=== PATIENT | female | born 1985 | race Caucasian/White ===

== ENCOUNTER 2016-12-02 17:00 | Inpatient (IN) | payer OTHER ==
[~2016-12-02] VITALS: Ht 162.6 cm; Wt 83.9 kg
[2016-12-02] MEDS ORDERED: OXYTOCIN 30 UNIT/500 ML PREMIX 500 ML IV PRN (18:00)
[2016-12-02] MEDS ORDERED: IBUPROFEN 600 MG TABLET. PO PRN (18:00)
[2016-12-02] MEDS ORDERED: CITRIC ACID/SODIUM CITRATE 30 ML SOLUTION. PO PRN (18:00)
[2016-12-02] MEDS ORDERED: TERBUTALINE 1 MG/ML VIAL. SQ PRN (18:00)
[2016-12-02] MEDS ORDERED: LIDOCAINE 1% PF 30 ML VIAL. INJ PRN (18:00)
[2016-12-02] MEDS ORDERED: 0.9 % SODIUM CHLORIDE 10 ML DISP.SYRIN. IV PRN (18:00)
[2016-12-02] MEDS ORDERED: FENTANYL PF 100 MCG/2 ML VIAL. IV PRN (18:00)
[2016-12-02] MEDS ORDERED: PNV1TABL25 PO (18:06)
[2016-12-02 18:20] LABS: BASO % 0 % (0-3); EOS % 1 % (0-3); HEMOGLOBIN 10.1 g/dL (12.0-15.5); LYMPH # 1.8 x10^3/uL (1.0-4.8); LYMPH % 13 % (24-48); MEAN CORPUSCULAR HEMOGLOBIN 24 pg (25-35); MEAN CORPUSCULAR HGB CONC 32 g/dL (31-37); MEAN CORPUSCULAR VOLUME 77 fL (79-100); MONO % 9 % (0-9); NEUT % 78 % (31-73); PLATELET COUNT 249 x10^3/uL (140-400); RED BLOOD COUNT 4.16 x10^6/uL (3.50-5.40); RED CELL DISTRIBUTION WIDTH 16.5 % (11.5-14.5); WHITE BLOOD COUNT 13.9 x10^3/uL (4.0-11.0)
[2016-12-02] MEDS: IV RINGERS,LACTATED 1000ML 1,000 ML IV PRN ×2 (18:29→19:17)
[2016-12-02] MEDS ORDERED: EPHEDRINE PF IN SALINE 50 MG/5 ML DISP.SYRIN. IV PRN (18:30)
[2016-12-02] MEDS ORDERED: ROPIVacaine 0.2% PF 10 ML VIAL. EPI ONE (18:30)
[2016-12-02] MEDS ORDERED: FENTANYL PF 100 MCG/2 ML VIAL. EPI ONE (18:30)
[2016-12-02] MEDS ORDERED: NALOXONE 0.4 MG/ML VIAL. IV PRN (18:30)
[2016-12-02] MEDS ORDERED: ONDANSETRON PF 4 MG/2 ML VIAL. IV PRN (18:30)
[2016-12-02] MEDS ORDERED: ROPIVacaine 0.2% IN 0.9%NACL PF 40 MG/20 ML DISP.SYRIN. ONE (18:33)
[2016-12-02] MEDS: L&D EPIDURAL CASSETTE 100 ML EP PRN (19:00)
--- NOTE | 2016-12-03 01:21 | PDOC1 ---
OB - History Hx of Present Care: Good Care Ultrasounds: Normal mid trimester US Obstetrical Complications: None Medical Complications: None Past Family/Social History * Past Medical, Surgical, Family and Obstetric Histories reviewed from chart. Rubella: Immune RPR/VDRL: Negative GBS Status: Negative HBsAG: Negative OB - Chief Complaint & HPI Date of Admission: Date of Admission: Dec 02, 2016 at 17:00 Chief Complaint/History : 2 Para: 1 EGA: 38 Reason for admission: active labor Admission Nurse Assessment Rev: Yes Problems: OB - Admission Exam Physical Exam Vitals: VS - Last 72 Hours, by Label Date Time Temp Pulse Resp B/P Pulse Ox O2 Delivery O2 Flow Rate FiO2 12/02/16 19:00 18 Room Air 12/02/16 18:14 24 Room Air HEENT: Normal Heart: Regular Rate Lungs: Clear Abdomen: Gravid, Non tender, Soft Extremities: Edema Reflexes: Normal Cervical Dilatation: 5cm Effacement: 75% Station: -3 Membranes: Intact Heart Rate: Normal Accelerations: Accelerations Present Decelerations: No decelerations Contractions on Admission: < 5 Minutes Apart Intensity: Firm Text A: 38 wks IUP Active labor P: Admit for labor management. MARIAN HAWK Jr, MD Dec 03, 2016 01:21
[2016-12-03] MEDS: L&D EPIDURAL CASSETTE 100 ML EP PRN (01:59)
[2016-12-03] MEDS: IV RINGERS,LACTATED 1000ML 1,000 ML IV PRN (04:31)
[2016-12-03] MEDS ORDERED: CEFAZOLIN PREMIX 2 GM/50 ML BAG. IV ONE (07:00)
[2016-12-03] MEDS ORDERED: CEFAZOLIN 2GM PREMIX 50 ML IV SCH (07:15)
[2016-12-03] MEDS ORDERED: LIDOCAINE 2% PF Vial for OR 5 ML VIAL. ONE ×2 (07:27→08:16)
[2016-12-03] MEDS ORDERED: PHENYLEPHRINE in 0.9% NACL PF 1 MG/10 ML DISP.SYRIN. IV ONE ×2 (07:46→08:32)
[2016-12-03] MEDS ORDERED: OXYTOCIN 10 UNIT/ML VIAL. ONE (07:56)
--- NOTE | 2016-12-03 08:40 | PDOC4 ---
OB Operative Note PRE OP DIAGNOSIS: Other (FTP) POST OP DIAGNOSIS: Other (Same) OPERATION PERFORMED: [facility] Surgeon Dr. Stevenson Production Supervisor Radha Anesthesia: Regional (Epidural) Blood Loss 800 ml Specimen placenta and OB Findings: Position (Vertex), Sex (Male), (6/9), Weight (3225 Gram), Other (true knot x 1) Complications none Additional Remarks pt. MARIAN Huber Jr, MD Dec 03, 2016 08:40
[2016-12-03] MEDS ORDERED: ZOLPIDEM 5 MG TABLET. PO PRN (08:45)
[2016-12-03] MEDS ORDERED: MAG HYDROX/ALUMINUM HYD/SIMETH 30 ML ORAL.SUSP PO PRN (08:45)
[2016-12-03] MEDS ORDERED: DIPHENHYDRAMINE ORAL ELIXIR 12.5 MG/5 ML. PO PRN (08:45)
[2016-12-03] MEDS ORDERED: OXYTOCIN 30 UNIT/500 ML PREMIX 500 ML IV PRN (08:45)
[2016-12-03] MEDS ORDERED: HYDROMORPHONE STANDARD PCA 30 ML IV PRN (08:45)
[2016-12-03] MEDS ORDERED: ONDANSETRON PF 4 MG/2 ML VIAL. IV PRN (08:45)
[2016-12-03] MEDS ORDERED: 0.9 % SODIUM CHLORIDE 10 ML DISP.SYRIN. IV PRN (08:45)
[2016-12-03] MEDS: KETOROLAC TROMETHAMINE 30 MG/ML SYRINGE. IV PRN ×2 (09:29→18:30)
[2016-12-03 10:40] LABS: HEMATOCRIT 25.2 % (36.0-47.0); RED BLOOD COUNT 3.27 x10^6/uL (3.50-5.40); RED CELL DISTRIBUTION WIDTH 16.3 % (11.5-14.5); WHITE BLOOD COUNT 17.9 x10^3/uL (4.0-11.0)
--- NOTE | 2016-12-03 11:07 | OP ---
DATE OF SURGERY: PREOPERATIVE DIAGNOSES: 1. A 38 weeks intrauterine . 2. Failure to progress. POSTOPERATIVE DIAGNOSES: 1. A 38 weeks intrauterine . 2. Failure to progress. PROCEDURE: Primary low transverse section. SURGEON: Dr. Alberto Stevenson. MEDICAL RESEARCH ASSOCIATE: Radha. ANESTHESIA: Epidural. ESTIMATED BLOOD LOSS: 800 mL. COMPLICATIONS: None. FINDINGS: Viable male , Apgars 6 and 9, weight 3225 grams. Three-vessel cord placenta delivered manually intact. SUMMARY: Term gestation, 2, para 1, at 38 weeks gestation, presented in active labor. The patient progressed up to 9.5 cm dilation; however, she felt to progress over several hours of laboring. The patient was then counseled on need for section due to failure to progress. She was counseled on risks, benefits and expectations and voiced a clear understanding to proceed. DESCRIPTION OF PROCEDURE: The patient was taken to surgery suite and placed in dorsal supine position where she was prepped with ChloraPrep and draped in sterile fashion. After adequate anesthesia, a Pfannenstiel skin incision was made with scalpel down to and through the fascia. Fascia was extended laterally using curved Mensah scissors. The superior edge of the fascia was grasped with two Wander clamps and dissected free of the abdominal rectus muscle using blunt dissection along with Bovie cautery. The same process took place inferiorly. The peritoneum was grasped with 2 hemostats and entered sharply with Metzenbaum scissors. This incision was extended superiorly as well as inferiorly. The Dejon ring retractor was placed. Low transverse hysterotomy incision made with scalpel down to the infant. The hysterotomy incision was extended laterally and superiorly digitally. ____ scissors were used to extend the right similarly extend the left apex of the hysterotomy incision and superiorly. With fundal pressure, the 's head was delivered in a smooth atraumatic manner. With additional fundal pressure, the anterior shoulder was delivered followed by posterior shoulder and rest of the male was delivered. was suctioned with bulb syringe orally and nasally, umbilical cord was clamped twice and cut. A viable male infant was handed to waiting nursing staff. A true knot x 1 was visualized. The uterus was exteriorized and the placenta was delivered manually intact. The uterus was then cleared of clot and debris with a moist lap. The extension was repaired in a double layer using 1-0 Vicryl suture in running locked fashion. The hysterotomy incision itself was reapproximated using 1-0 Vicryl suture in a running locked fashion and imbricated layer of 1-0 Vicryl suture was utilized for better hemostasis. Noahjf-bu-xxzec sutures were placed in the left apex of the hysterotomy incision as well as FloSeal for better hemostasis. Interceed was placed over the hysterotomy incision in an inverted T fashion. The uterus palpated firm, fallopian tubes and ovaries were normal. Posterior cul-de-sac was cleared of clot and debris with a moist lap. The pericolic gutters were cleared of clot and debris with a moist lap. Hysterotomy incision was reviewed and was hemostatic. The Dejon ring retractor was removed. The peritoneum was reapproximated using 1-0 Vicryl suture in running fashion. The abdominal rectus muscle reapproximated using 1-0 Vicryl suture in a running fashion. The fascia was reapproximated using 0 Vicryl suture in running fashion. Skin was reapproximated using 4-0 Vicryl suture in subcuticular manner. The patient tolerated the procedure well and was taken to recovery room in stable condition. Sponge and needle count correct x 3. MARIAN STEVENSON MD DR: TIRSO/mara JOB#: [id number] / [id number]
[2016-12-03 12:00] VITALS: BP 100/52
[2016-12-03 18:00] VITALS: BP 105/70
[2016-12-03] MEDS: FLUCONAZOLE 100 MG TABLET. PO SCH (20:15)
[2016-12-03 23:30] VITALS: BP 88/46
[2016-12-04] MEDS: KETOROLAC TROMETHAMINE 30 MG/ML SYRINGE. IV PRN (03:04)
[2016-12-04 04:11] LABS: BASO % 0 % (0-3); EOS % 0 % (0-3); HEMATOCRIT 23.3 % (36.0-47.0); HEMOGLOBIN 7.2 g/dL (12.0-15.5); LYMPH # 1.2 x10^3/uL (1.0-4.8); LYMPH % 7 % (24-48); MEAN CORPUSCULAR HEMOGLOBIN 24 pg (25-35); MEAN CORPUSCULAR HGB CONC 31 g/dL (31-37); MEAN CORPUSCULAR VOLUME 78 fL (79-100); MONO % 6 % (0-9); NEUT % 87 % (31-73); PLATELET COUNT 171 x10^3/uL (140-400); RED BLOOD COUNT 2.97 x10^6/uL (3.50-5.40); RED CELL DISTRIBUTION WIDTH 16.2 % (11.5-14.5); WHITE BLOOD COUNT 17.2 x10^3/uL (4.0-11.0)
[2016-12-04 05:16] LABS: PLT ESTIMATE ADEQUATE (ADEQUATE)
[2016-12-04] MEDS: OXYCODONE/APAP 5/325 TABLET. PO PRN ×2 (05:35→15:10)
[2016-12-04 06:15] VITALS: BP 94/48
--- NOTE | 2016-12-04 08:03 | PDOC ---
OB Progress Note Date of Service 12/04/16 Time of Evaluation 0800 Problem List Problems Medical Problems: (1) delivery delivered Status: Acute Notes Pt. feeling well. Pain controlled. Breast feeding. Lochia minimal. Lab Laboratory Tests Test 12/02/16 17:40 12/03/16 10:30 12/04/16 03:45 White Blood Count 13.9x10^3/uL (4.0-11.0) 17.9x10^3/uL (4.0-11.0) 17.2x10^3/uL (4.0-11.0) Red Blood Count 4.16x10^6/uL (3.50-5.40) 3.27x10^6/uL (3.50-5.40) 2.97x10^6/uL (3.50-5.40) Hemoglobin 10.1g/dL (12.0-15.5) 8.0g/dL (12.0-15.5) 7.2g/dL (12.0-15.5) Hematocrit 32.0% (36.0-47.0) 25.2% (36.0-47.0) 23.3% (36.0-47.0) Mean Corpuscular Volume 77fL (79-100) 77fL (79-100) 78fL (79-100) Mean Corpuscular Hemoglobin 24pg (25-35) 24pg (25-35) 24pg (25-35) Mean Corpuscular Hemoglobin Concent 32g/dL (31-37) 32g/dL (31-37) 31g/dL (31-37) Red Cell Distribution Width 16.5% (11.5-14.5) 16.3% (11.5-14.5) 16.2% (11.5-14.5) Platelet Count 249x10^3/uL (140-400) 186x10^3/uL (140-400) 171x10^3/uL (140-400) Neutrophils (%) (Auto) 78% (31-73) 87% (31-73) Lymphocytes (%) (Auto) 13% (24-48) 7% (24-48) Monocytes (%) (Auto) 9% (0-9) 6% (0-9) Eosinophils (%) (Auto) 1% (0-3) 0% (0-3) Basophils (%) (Auto) 0% (0-3) 0% (0-3) Neutrophils # (Auto) 10.8x10^3uL (1.8-7.7) 14.9x10^3uL (1.8-7.7) Lymphocytes # (Auto) 1.8x10^3/uL (1.0-4.8) 1.2x10^3/uL (1.0-4.8) Monocytes # (Auto) 1.2x10^3/uL (0.0-1.1) 1.0x10^3/uL (0.0-1.1) Eosinophils # (Auto) 0.1x10^3/uL (0.0-0.7) 0.1x10^3/uL (0.0-0.7) Basophils # (Auto) 0.0x10^3/uL (0.0-0.2) 0.0x10^3/uL (0.0-0.2) RPR Titer Additional Testing Non reactive (Non Reactive) Segmented Neutrophils % 80% (35-66) Band Neutrophils % 9% (0-9) Lymphocytes % 9% (24-48) Monocytes % 2% (0-10) Platelet Estimate Adequate (ADEQUATE) Laboratory Tests Test 12/03/16 10:30 12/04/16 03:45 White Blood Count 17.9x10^3/uL (4.0-11.0) 17.2x10^3/uL (4.0-11.0) Red Blood Count 3.27x10^6/uL (3.50-5.40) 2.97x10^6/uL (3.50-5.40) Hemoglobin 8.0g/dL (12.0-15.5) 7.2g/dL (12.0-15.5) Hematocrit 25.2% (36.0-47.0) 23.3% (36.0-47.0) Mean Corpuscular Volume 77fL (79-100) 78fL (79-100) Mean Corpuscular Hemoglobin 24pg (25-35) 24pg (25-35) Mean Corpuscular Hemoglobin Concent 32g/dL (31-37) 31g/dL (31-37) Red Cell Distribution Width 16.3% (11.5-14.5) 16.2% (11.5-14.5) Platelet Count 186x10^3/uL (140-400) 171x10^3/uL (140-400) Neutrophils (%) (Auto) 87% (31-73) Lymphocytes (%) (Auto) 7% (24-48) Monocytes (%) (Auto) 6% (0-9) Eosinophils (%) (Auto) 0% (0-3) Basophils (%) (Auto) 0% (0-3) Neutrophils # (Auto) 14.9x10^3uL (1.8-7.7) Lymphocytes # (Auto) 1.2x10^3/uL (1.0-4.8) Monocytes # (Auto) 1.0x10^3/uL (0.0-1.1) Eosinophils # (Auto) 0.1x10^3/uL (0.0-0.7) Basophils # (Auto) 0.0x10^3/uL (0.0-0.2) Segmented Neutrophils % 80% (35-66) Band Neutrophils % 9% (0-9) Lymphocytes % 9% (24-48) Monocytes % 2% (0-10) Platelet Estimate Adequate (ADEQUATE) Medications Current Medications Sodium Chloride 3 ml 3 ml QSHIFT PRN IV AFTER MEDS AND BLOOD DRAWS; Start 12/02 at 18:00 Lactated Ringer's (Iv Lactated Ringers) 1,000 ml @ 125 mls/hr Q8H PRN IV PER PROTOCOL Last administered on 12/03/16 04:31; Start 12/02/16 at 18:00 Fentanyl Citrate (Fentanyl 2ml Vial) 100 mcg PRN Q20MIN PRN IV Labor pain Last administered on 12/02/16 18:14; Start 12/02/16 at 18:00 Citric Acid/ Sodium Citrate (Bicitra) 30 ml 1X PRN PRN PO DYSPEPSIA; Start at 18:00; Stop 12/03/16 at 17:59; Status DC Terbutaline Sulfate (Brethine) 0.25 mg 1X PRN PRN SQ SEE COMMENTS; Start at 18:00; Stop 12/03/16 at 17:59; Status DC Lidocaine HCl 30 ml 30 ml 1X PRN PRN INJ SEE COMMENTS; Start 12/02/16 at 18:00 ; Stop 12/04/16 at 17:59 Oxytocin/Sodium Chloride (Oxytocin Premix Infusion) 500 ml @ 0 mls/hr CONT PRN PRN IV Post delivery bleeding Last administered on 12/03/16 02:07; Start at 18:00 Ibuprofen (Motrin) 600 mg PRN Q6HRS PRN PO PAIN; Start 12/02/16 at 18:00 Ephedrine Sulfate 10 mg PRN Q2MIN PRN IV IF SBP<90; Start 12/02/16 at 18:30 Naloxone HCl (Narcan) 0.04 mg PRN Q1MIN PRN IV SEE COMMENTS; Start 12/02/16 at 18:30 Fentanyl Citrate 100 mcg 100 mcg 1X ONCE EPI ; Start 12/02/16 at 18:30; Stop at 18:31; Status DC Ropivacaine/ Fentanyl/NS (Gvshmbsf-Gtfza-XM 3 Mcg-0.1%) 100 ml @ 14 mls/hr CONT PRN EP PAIN Last administered on 12/03/16 01:59; Start 12/02/16 at 18:30 Ondansetron HCl (Zofran) 4 mg PRN Q6HRS PRN IV NAUSEA/VOMITING Last administered on 12/03/16 18:30; Start 12/02/16 at 18:30 Ropivacaine (Naropin 0.2%) 20 ml 1X ONCE EPI ; Start 12/02/16 at 18:30; Stop at 18:31; Status DC Ropivacaine 40 mg STK-MED ONCE .ROUTE Last administered on 12/02/16 19:01; Start 12/02/16 at 18:33; Stop 12/02/16 at 18:34; Status DC Fluconazole 100 mg 100 mg DAILY PO Last administered on 12/03/16 20:15; Start 12/03/16 at 09:00; Stop 12/05/16 at 01:00 Cefazolin Sodium/ Dextrose (Ancef 2gm Premix) 50 ml @ 100 mls/hr 1X PREOP IV ; Start 12/03/16 at 07:15; Stop 12/04/16 at 18:00 Lidocaine HCl (Lidocaine Pf 2% Vial) 5 ml STK-MED ONCE .ROUTE ; Start 12/03/16 at 07:27; Stop 12/03/16 at 07:28; Status DC Phenylephrine HCl 1 mg STK-MED ONCE IV ; Start 12/03/16 at 07:46; Stop 12/03/16 at 07:47; Status DC Oxytocin (Pitocin) 10 unit STK-MED ONCE .ROUTE ; Start 12/03/16 at 07:56; Stop 12/03/16 at 07:57; Status DC Lidocaine HCl (Lidocaine Pf 2% Vial) 5 ml STK-MED ONCE .ROUTE ; Start 12/03/16 at 08:16; Stop 12/03/16 at 08:17; Status DC Phenylephrine HCl 1 mg STK-MED ONCE IV ; Start 12/03/16 at 08:32; Stop 12/03/16 at 08:33; Status DC Sodium Chloride 3 ml 3 ml QSHIFT PRN IV AFTER MEDS AND BLOOD DRAWS; Start 12/03 at 08:45 Oxytocin/Sodium Chloride (Oxytocin Premix Infusion) 500 ml @ 125 mls/hr CONT PRN IV EXCESSIVE POST- BLEEDING; Start 12/03/16 at 08:45; Stop 12/03/16 at 16:44; Status DC Ibuprofen (Motrin) 800 mg PRN Q8HRS PRN PO INFLAMMATION; Start 12/03/16 at 08: 45 Ondansetron HCl (Zofran) 4 mg PRN Q6HRS PRN IV NAUSEA/VOMITING; Start 12/03/16 at 08:45 Docusate Sodium (Colace) 100 mg PRN BID PRN PO CONSTIPATION; Start 12/03/16 at 08:45 Al Hydrox/Mg Hydrox/Simethicone (Mylanta Plus Xs) 30 ml PRN Q4HRS PRN PO HEARTBURN / GAS; Start 12/03/16 at 08:45 Simethicone (Gas-X) 80 mg PRN AFTMEALHC PRN PO GAS / BLOATING; Start 12/03/16 at 08:45 Diphenhydramine HCl (Benadryl Oral Elixir) 12.5 mg PRN Q6HRS PRN PO ITCHING; Start 12/03/16 at 08:45 Ferrous Sulfate (Feosol) 325 mg BIDWMEALS PO ; Start 12/03/16 at 17:00 Zolpidem Tartrate (Ambien) 5 mg PRN QHS PRN PO INSOMNIA, MAY REPEAT X1; Start 12/03/16 at 08:45 Oxycodone/ Acetaminophen (Percocet 5/325) 2 tab PRN Q4HRS PRN PO MODERATE PAIN , SEVERE PAIN Last administered on 12/04/16 05:35; Start 12/03/16 at 08:45 Ketorolac Tromethamine 30 mg 30 mg PRN Q6HRS PRN IV PAIN Last administered on 03:04; Start 12/03/16 at 08:45; Stop 12/08/16 at 08:44 Hydromorphone HCl (Dilaudid Standard FE[employer] MILL [employer] TECHNICIAN) 30 ml @ 0 mls/hr CONT PRN PRN IV PROTOCOL Last administered on 12/03/16 09:37; Start 12/03/16 at 08:45 Cefazolin Sodium/ Dextrose (Ancef 2gm Premix) 2 gm STK-MED ONCE IV ; Start 12/03 at 07:00; Stop 12/03/16 at 09:00; Status DC Active Scripts Active Reported Tablet (Pnv Cmb#95/Ferrous Fumarate/Fa) 1 Each Tablet 1 Tab PO DAILY Exam Abd: soft, mild tenderness, fundus firm Bandage removed. Incision site: clean, dry and intact Assessment POD#1 s/p c/s Plan of Care: Continue current Tx, Mgmt MARIAN HAWK Jr, MD Dec 04, 2016 08:03
[2016-12-04] MEDS: IBUPROFEN 800 MG TABLET. PO PRN ×2 (09:10→17:37)
[2016-12-04] MEDS: FERROUS SULFATE 325 MG TABLET PO SCH ×2 (09:10→17:36)
[2016-12-04] MEDS: SIMETHICONE 80 MG TAB.CHEW PO PRN ×2 (09:10→15:10)
[2016-12-04] MEDS: FLUCONAZOLE 100 MG TABLET. PO SCH (09:10)
[2016-12-04] MEDS: DOCUSATE SODIUM 100 MG CAPSULE PO PRN ×2 (09:10→17:37)
[2016-12-04 13:13] VITALS: BP 96/59
[2016-12-04 18:49] VITALS: BP 101/62
[2016-12-04 23:01] VITALS: BP 97/63
[2016-12-05] MEDS: IBUPROFEN 800 MG TABLET. PO PRN ×2 (05:07→18:38)
[2016-12-05 06:09] VITALS: BP 111/77
[2016-12-05] MEDS: FERROUS SULFATE 325 MG TABLET PO SCH ×2 (08:40→18:38)
[2016-12-05] MEDS ORDERED: DIPHTH,PERTUSS(ACELL),TET TOX 0.5 ML DISP.SYRIN. VAX IM ONE (09:00)
[2016-12-05 09:56] VITALS: BP 99/53
[2016-12-05] MEDS: DOCUSATE SODIUM 100 MG CAPSULE PO PRN ×2 (10:10→18:38)
[2016-12-05] MEDS: OXYCODONE/APAP 5/325 TABLET. PO PRN ×2 (12:26→18:38)
--- NOTE | 2016-12-05 12:43 | PDOC ---
OB Progress Note Date of Service 12/05/16 Time of Evaluation 1240 Problem List Problems Medical Problems: (1) delivery delivered Status: Acute Notes Pt. feeling well. No complaints. Pain controlled. Ambulating and voiding without difficulty. Lab Laboratory Tests Test 12/04/16 03:45 White Blood Count 17.2x10^3/uL (4.0-11.0) Red Blood Count 2.97x10^6/uL (3.50-5.40) Hemoglobin 7.2g/dL (12.0-15.5) Hematocrit 23.3% (36.0-47.0) Mean Corpuscular Volume 78fL (79-100) Mean Corpuscular Hemoglobin 24pg (25-35) Mean Corpuscular Hemoglobin Concent 31g/dL (31-37) Red Cell Distribution Width 16.2% (11.5-14.5) Platelet Count 171x10^3/uL (140-400) Neutrophils (%) (Auto) 87% (31-73) Lymphocytes (%) (Auto) 7% (24-48) Monocytes (%) (Auto) 6% (0-9) Eosinophils (%) (Auto) 0% (0-3) Basophils (%) (Auto) 0% (0-3) Neutrophils # (Auto) 14.9x10^3uL (1.8-7.7) Lymphocytes # (Auto) 1.2x10^3/uL (1.0-4.8) Monocytes # (Auto) 1.0x10^3/uL (0.0-1.1) Eosinophils # (Auto) 0.1x10^3/uL (0.0-0.7) Basophils # (Auto) 0.0x10^3/uL (0.0-0.2) Segmented Neutrophils % 80% (35-66) Band Neutrophils % 9% (0-9) Lymphocytes % 9% (24-48) Monocytes % 2% (0-10) Platelet Estimate Adequate (ADEQUATE) Medications Current Medications Sodium Chloride 3 ml 3 ml QSHIFT PRN IV AFTER MEDS AND BLOOD DRAWS; Start 12/02 at 18:00; Stop 12/05/16 at 07:56; Status DC Lactated Ringer's (Iv Lactated Ringers) 1,000 ml @ 125 mls/hr Q8H PRN IV PER PROTOCOL Last administered on 12/03/16 04:31; Start 12/02/16 at 18:00 Fentanyl Citrate (Fentanyl 2ml Vial) 100 mcg PRN Q20MIN PRN IV Labor pain Last administered on 12/02/16 18:14; Start 12/02/16 at 18:00; Stop 12/05/16 at 07:56 ; Status DC Citric Acid/ Sodium Citrate (Bicitra) 30 ml 1X PRN PRN PO DYSPEPSIA; Start at 18:00; Stop 12/03/16 at 17:59; Status DC Terbutaline Sulfate (Brethine) 0.25 mg 1X PRN PRN SQ SEE COMMENTS; Start at 18:00; Stop 12/03/16 at 17:59; Status DC Lidocaine HCl 30 ml 30 ml 1X PRN PRN INJ SEE COMMENTS; Start 12/02/16 at 18:00 ; Stop 12/04/16 at 17:59; Status DC Oxytocin/Sodium Chloride (Oxytocin Premix Infusion) 500 ml @ 0 mls/hr CONT PRN PRN IV Post delivery bleeding Last administered on 12/03/16 02:07; Start at 18:00; Stop 12/05/16 at 07:56; Status DC Ibuprofen (Motrin) 600 mg PRN Q6HRS PRN PO PAIN; Start 12/02/16 at 18:00 Ephedrine Sulfate 10 mg PRN Q2MIN PRN IV IF SBP<90; Start 12/02/16 at 18:30 Naloxone HCl (Narcan) 0.04 mg PRN Q1MIN PRN IV SEE COMMENTS; Start 12/02/16 at 18:30; Stop 12/05/16 at 07:56; Status DC Fentanyl Citrate 100 mcg 100 mcg 1X ONCE EPI ; Start 12/02/16 at 18:30; Stop at 18:31; Status DC Ropivacaine/ Fentanyl/NS (Ruhxuicl-Zyjzg-IH 3 Mcg-0.1%) 100 ml @ 14 mls/hr CONT PRN EP PAIN Last administered on 12/03/16 01:59; Start 12/02/16 at 18:30 ; Stop 12/05/16 at 07:56; Status DC Ondansetron HCl (Zofran) 4 mg PRN Q6HRS PRN IV NAUSEA/VOMITING Last administered on 12/03/16 18:30; Start 12/02/16 at 18:30 Ropivacaine (Naropin 0.2%) 20 ml 1X ONCE EPI ; Start 12/02/16 at 18:30; Stop at 18:31; Status DC Ropivacaine 40 mg STK-MED ONCE .ROUTE Last administered on 12/02/16 19:01; Start 12/02/16 at 18:33; Stop 12/02/16 at 18:34; Status DC Fluconazole 100 mg 100 mg DAILY PO Last administered on 12/04/16 09:10; Start 12/03/16 at 09:00; Stop 12/05/16 at 01:00; Status DC Cefazolin Sodium/ Dextrose (Ancef 2gm Premix) 50 ml @ 100 mls/hr 1X PREOP IV ; Start 12/03/16 at 07:15; Stop 12/04/16 at 18:00; Status DC Lidocaine HCl (Lidocaine Pf 2% Vial) 5 ml STK-MED ONCE .ROUTE ; Start 12/03/16 at 07:27; Stop 12/03/16 at 07:28; Status DC Phenylephrine HCl 1 mg STK-MED ONCE IV ; Start 12/03/16 at 07:46; Stop 12/03/16 at 07:47; Status DC Oxytocin (Pitocin) 10 unit STK-MED ONCE .ROUTE ; Start 12/03/16 at 07:56; Stop 12/03/16 at 07:57; Status DC Lidocaine HCl (Lidocaine Pf 2% Vial) 5 ml STK-MED ONCE .ROUTE ; Start 12/03/16 at 08:16; Stop 12/03/16 at 08:17; Status DC Phenylephrine HCl 1 mg STK-MED ONCE IV ; Start 12/03/16 at 08:32; Stop 12/03/16 at 08:33; Status DC Sodium Chloride 3 ml 3 ml QSHIFT PRN IV AFTER MEDS AND BLOOD DRAWS; Start 12/03 at 08:45; Stop 12/05/16 at 07:56; Status DC Oxytocin/Sodium Chloride (Oxytocin Premix Infusion) 500 ml @ 125 mls/hr CONT PRN IV EXCESSIVE POST- BLEEDING; Start 12/03/16 at 08:45; Stop 12/03/16 at 16:44; Status DC Ibuprofen (Motrin) 800 mg PRN Q8HRS PRN PO INFLAMMATION Last administered on 05:07; Start 12/03/16 at 08:45 Ondansetron HCl (Zofran) 4 mg PRN Q6HRS PRN IV NAUSEA/VOMITING; Start 12/03/16 at 08:45 Docusate Sodium (Colace) 100 mg PRN BID PRN PO CONSTIPATION Last administered on 12/05/16 10:10; Start 12/03/16 at 08:45 Al Hydrox/Mg Hydrox/Simethicone (Mylanta Plus Xs) 30 ml PRN Q4HRS PRN PO HEARTBURN / GAS; Start 12/03/16 at 08:45 Simethicone (Gas-X) 80 mg PRN AFTMEALHC PRN PO GAS / BLOATING Last administered on 12/04/16 15:10; Start 12/03/16 at 08:45 Diphenhydramine HCl (Benadryl Oral Elixir) 12.5 mg PRN Q6HRS PRN PO ITCHING; Start 12/03/16 at 08:45 Ferrous Sulfate (Feosol) 325 mg BIDWMEALS PO Last administered on 12/05/16 08: 40; Start 12/03/16 at 17:00 Zolpidem Tartrate (Ambien) 5 mg PRN QHS PRN PO INSOMNIA, MAY REPEAT X1; Start 12/03/16 at 08:45 Oxycodone/ Acetaminophen (Percocet 5/325) 2 tab PRN Q4HRS PRN PO MODERATE PAIN , SEVERE PAIN Last administered on 12/05/16 12:26; Start 12/03/16 at 08:45 Ketorolac Tromethamine 30 mg 30 mg PRN Q6HRS PRN IV PAIN Last administered on 03:04; Start 12/03/16 at 08:45; Stop 12/05/16 at 07:56; Status DC Hydromorphone HCl (Dilaudid Standard DAY CARE SUPERVISOR) 30 ml @ 0 mls/hr CONT PRN PRN IV PROTOCOL Last administered on 12/03/16 09:37; Start 12/03/16 at 08:45 Cefazolin Sodium/ Dextrose (Ancef 2gm Premix) 2 gm STK-MED ONCE IV ; Start 12/03 at 07:00; Stop 12/03/16 at 09:00; Status DC Diphtheria/ Tetanus/Acell Pertussis (Boostrix) 0.5 ml ONCE ONCE VAX IM Last administered on 12/05/16t 10:12; Start 12/05/16 at 09:00; Stop 12/05/16 at 09:01; Status DC Active Scripts Active Reported Tablet (Pnv Cmb#95/Ferrous Fumarate/Fa) 1 Each Tablet 1 Tab PO DAILY Exam Abd: soft, mild tenderness, fundus firm Incision site: clean, dry, and intact Assessment POD#2 s/p c/s Plan of Care: Continue current Tx, Mgmt MARIAN HAWK Jr, MD Dec 05, 2016 12:43
[2016-12-05 18:40] VITALS: BP 111/72
[2016-12-05 22:15] VITALS: BP 103/65
[2016-12-06] MEDS: IBUPROFEN 800 MG TABLET. PO PRN (05:19)
[2016-12-06 05:20] VITALS: BP 102/71
[2016-12-06] MEDS: OXYCODONE/APAP 5/325 TABLET. PO PRN (05:20)
[2016-12-06] MEDS: FERROUS SULFATE 325 MG TABLET PO SCH (07:50)
[2016-12-06] MEDS: DOCUSATE SODIUM 100 MG CAPSULE PO PRN (07:50)
--- NOTE | 2016-12-06 11:28 | PDOC ---
OB Progress Note Date of Service 12/06/16 Time of Evaluation 1125 Problem List Problems Medical Problems: (1) delivery delivered Status: Acute Notes Pt. feeling well. No complaints. Medications Current Medications Sodium Chloride 3 ml 3 ml QSHIFT PRN IV AFTER MEDS AND BLOOD DRAWS; Start 12/02 at 18:00; Stop 12/05/16 at 07:56; Status DC Lactated Ringer's (Iv Lactated Ringers) 1,000 ml @ 125 mls/hr Q8H PRN IV PER PROTOCOL Last administered on 12/03/16 04:31; Start 12/02/16 at 18:00 Fentanyl Citrate (Fentanyl 2ml Vial) 100 mcg PRN Q20MIN PRN IV Labor pain Last administered on 12/02/16 18:14; Start 12/02/16 at 18:00; Stop 12/05/16 at 07:56 ; Status DC Citric Acid/ Sodium Citrate (Bicitra) 30 ml 1X PRN PRN PO DYSPEPSIA; Start at 18:00; Stop 12/03/16 at 17:59; Status DC Terbutaline Sulfate (Brethine) 0.25 mg 1X PRN PRN SQ SEE COMMENTS; Start at 18:00; Stop 12/03/16 at 17:59; Status DC Lidocaine HCl 30 ml 30 ml 1X PRN PRN INJ SEE COMMENTS; Start 12/02/16 at 18:00 ; Stop 12/04/16 at 17:59; Status DC Oxytocin/Sodium Chloride (Oxytocin Premix Infusion) 500 ml @ 0 mls/hr CONT PRN PRN IV Post delivery bleeding Last administered on 12/03/16 02:07; Start at 18:00; Stop 12/05/16 at 07:56; Status DC Ibuprofen (Motrin) 600 mg PRN Q6HRS PRN PO PAIN; Start 12/02/16 at 18:00 Ephedrine Sulfate 10 mg PRN Q2MIN PRN IV IF SBP<90; Start 12/02/16 at 18:30 Naloxone HCl (Narcan) 0.04 mg PRN Q1MIN PRN IV SEE COMMENTS; Start 12/02/16 at 18:30; Stop 12/05/16 at 07:56; Status DC Fentanyl Citrate 100 mcg 100 mcg 1X ONCE EPI ; Start 12/02/16 at 18:30; Stop at 18:31; Status DC Ropivacaine/ Fentanyl/NS (Wwautbsj-Bavda-MH 3 Mcg-0.1%) 100 ml @ 14 mls/hr CONT PRN EP PAIN Last administered on 12/03/16 01:59; Start 12/02/16 at 18:30 ; Stop 12/05/16 at 07:56; Status DC Ondansetron HCl (Zofran) 4 mg PRN Q6HRS PRN IV NAUSEA/VOMITING Last administered on 12/03/16 18:30; Start 12/02/16 at 18:30 Ropivacaine (Naropin 0.2%) 20 ml 1X ONCE EPI ; Start 12/02/16 at 18:30; Stop at 18:31; Status DC Ropivacaine 40 mg STK-MED ONCE .ROUTE Last administered on 12/02/16 19:01; Start 12/02/16 at 18:33; Stop 12/02/16 at 18:34; Status DC Fluconazole 100 mg 100 mg DAILY PO Last administered on 12/04/16 09:10; Start 12/03/16 at 09:00; Stop 12/05/16 at 01:00; Status DC Cefazolin Sodium/ Dextrose (Ancef 2gm Premix) 50 ml @ 100 mls/hr 1X PREOP IV ; Start 12/03/16 at 07:15; Stop 12/04/16 at 18:00; Status DC Lidocaine HCl (Lidocaine Pf 2% Vial) 5 ml STK-MED ONCE .ROUTE ; Start 12/03/16 at 07:27; Stop 12/03/16 at 07:28; Status DC Phenylephrine HCl 1 mg STK-MED ONCE IV ; Start 12/03/16 at 07:46; Stop 12/03/16 at 07:47; Status DC Oxytocin (Pitocin) 10 unit STK-MED ONCE .ROUTE ; Start 12/03/16 at 07:56; Stop 12/03/16 at 07:57; Status DC Lidocaine HCl (Lidocaine Pf 2% Vial) 5 ml STK-MED ONCE .ROUTE ; Start 12/03/16 at 08:16; Stop 12/03/16 at 08:17; Status DC Phenylephrine HCl 1 mg STK-MED ONCE IV ; Start 12/03/16 at 08:32; Stop 12/03/16 at 08:33; Status DC Sodium Chloride 3 ml 3 ml QSHIFT PRN IV AFTER MEDS AND BLOOD DRAWS; Start 12/03 at 08:45; Stop 12/05/16 at 07:56; Status DC Oxytocin/Sodium Chloride (Oxytocin Premix Infusion) 500 ml @ 125 mls/hr CONT PRN IV EXCESSIVE POST- BLEEDING; Start 12/03/16 at 08:45; Stop 12/03/16 at 16:44; Status DC Ibuprofen (Motrin) 800 mg PRN Q8HRS PRN PO INFLAMMATION Last administered on 05:19; Start 12/03/16 at 08:45 Ondansetron HCl (Zofran) 4 mg PRN Q6HRS PRN IV NAUSEA/VOMITING; Start 12/03/16 at 08:45 Docusate Sodium (Colace) 100 mg PRN BID PRN PO CONSTIPATION Last administered on 12/06/16 07:50; Start 12/03/16 at 08:45 Al Hydrox/Mg Hydrox/Simethicone (Mylanta Plus Xs) 30 ml PRN Q4HRS PRN PO HEARTBURN / GAS; Start 12/03/16 at 08:45 Simethicone (Gas-X) 80 mg PRN AFTMEALHC PRN PO GAS / BLOATING Last administered on 12/04/16 15:10; Start 12/03/16 at 08:45 Diphenhydramine HCl (Benadryl Oral Elixir) 12.5 mg PRN Q6HRS PRN PO ITCHING; Start 12/03/16 at 08:45 Ferrous Sulfate (Feosol) 325 mg BIDWMEALS PO Last administered on 12/06/16 07: 50; Start 12/03/16 at 17:00 Zolpidem Tartrate (Ambien) 5 mg PRN QHS PRN PO INSOMNIA, MAY REPEAT X1; Start 12/03/16 at 08:45 Oxycodone/ Acetaminophen (Percocet 5/325) 2 tab PRN Q4HRS PRN PO MODERATE PAIN , SEVERE PAIN Last administered on 12/06/16 05:20; Start 12/03/16 at 08:45 Ketorolac Tromethamine 30 mg 30 mg PRN Q6HRS PRN IV PAIN Last administered on 03:04; Start 12/03/16 at 08:45; Stop 12/05/16 at 07:56; Status DC Hydromorphone HCl (Dilaudid Standard [employer]) 30 ml @ 0 mls/hr CONT PRN PRN IV PROTOCOL Last administered on 12/03/16 09:37; Start 12/03/16 at 08:45 Cefazolin Sodium/ Dextrose (Ancef 2gm Premix) 2 gm STK-MED ONCE IV ; Start 12/03 at 07:00; Stop 12/03/16 at 09:00; Status DC Diphtheria/ Tetanus/Acell Pertussis (Boostrix) 0.5 ml ONCE ONCE VAX IM Last administered on 12/05/16 10:12; Start 12/05/16 at 09:00; Stop 12/05/16 at 09:01; Status DC Diphtheria/ Tetanus/Acell Pertussis (Boostrix) 0.5 ml ONCE ONCE VAX IM ; Start 12/06/16 at 12:00; Stop 12/06/16 at 12:01 Active Scripts Active Reported Tablet (Pnv Cmb#95/Ferrous Fumarate/Fa) 1 Each Tablet 1 Tab PO DAILY Exam Abd: soft, mild tenderness, fundus firm Incision site: clean, dry and intact Assessment POD#3 s/p c/s Plan of Care: See new orders (D/c home.) MARIAN HAWK Jr, MD Dec 06, 2016 11:28
--- NOTE | 2016-12-06 11:28 | DISCH ---
DISCHARGE INSTRUCTIONS Condition on Discharge Condition on Discharge: Stable Activity After Discharge Activity Instructions for Disc: Activity as tolerated Lifting Instructions after Dis: No heavy lifting Driving Instructions after Dis: Do not drive today Diet after Discharge Diet after Discharge: Regular Contacting the DREdgar after DC Call your doctor for: Concerns you may have Follow-Up Follow up with: Dr. Stevenson in 2 weeks. MARIAN STEVENSON Jr, MD Dec 06, 2016 11:28
[2016-12-06] MEDS ORDERED: IBUP-1060 PO (11:30)
[2016-12-06] MEDS ORDERED: DOCU-27 PO (11:30)
[2016-12-06] MEDS ORDERED: OXYC-323 PO (11:30)
[2016-12-06 11:47] VITALS: BP 106/72
[2016-12-06] MEDS ORDERED: DIPHTH,PERTUSS(ACELL),TET TOX 0.5 ML DISP.SYRIN. VAX IM ONE (12:00)
== END 2016-12-06 13:24 | disposition home or self-care (01) | DRG 765 ==
LOC: 3 SO LND 17:00 → OBSVTOIN 17:00 → 3 SO LND 12-03 09:10
PROVIDERS: ADMIT Obstetrics & Gynecology; ATTEND Obstetrics & Gynecology
PROC: 10D00Z1 Extraction of Products of Conception, Low, Open Approach (ICD-10-PCS; principal; 2016-12-03)
DX: O62.2 Other uterine inertia (principal); O45.93 Premature separation of placenta, unspecified, third trimester; O22.43 Hemorrhoids in pregnancy, third trimester; O36.63X0 Maternal care for excessive fetal growth, third trimester, not applicable or unspecified; Z37.0 Single live birth; O34.13 Maternal care for benign tumor of corpus uteri, third trimester; D25.9 Leiomyoma of uterus, unspecified; Z3A.38 38 weeks gestation of pregnancy; Z23 Encounter for immunization
CPT/HCPCS: 36415; 85007; 85027; 86593; 86850; 86900; 86901; 90715; J0690; J1170; J1885; J2370; J2405; J2590; J2795; J3010; J7120